=== PATIENT | male | born 1965 | race Caucasian/White ===

== ENCOUNTER 2022-07-16 01:16 | Emergency (ER) | payer BC, SELFPAY ==
[2022-07-16] VITALS (7 sets, daily range): BP systolic 106–113; BP diastolic 75–81; PULSE 58–82; RESP 12–18; TEMP 36.6; O2SAT 100
--- NOTE | ~2022-07-16 | XR_ITS ---
EXAMINATION: XR chest 2V DATE: 07/16/2022 03:47 INDICATION: Left chest pain. TECHNIQUE: Frontal and lateral views of the chest were obtained. COMPARISON: None. FINDINGS: The chest demonstrates clear lungs without pneumonia, pleural effusion, or pneumothorax. Th e heart size is normal. IMPRESSION: 1. No acute cardiopulmonary disease. Reviewed, dictated and finalized at location A. TLINE JOINER
--- NOTE | 2022-07-16 03:24 | ECG_ITS ---
Measurements Intervals [place] Rate: 65 P: 8 DC: 147 QRS: 35 QRSD: 100 T: 34 QT: 397 QTc: 413 Interpretive Statements SINUS RHYTHM NO PREVIOUS ECG AVAILABLE FOR COMPARISON Electronically Signed On 07-16-2022 14:52:56 PHYTOPATHOLOGY TEACHER by Alton Griffith M.D.
[2022-07-16 03:51] LABS: Basophils Percent Auto 0.5 % (0.2-1.2); Eosinophils Percent Auto 0.5 % (0-4.4); Hematocrit 43.8 % (42.0-52.0); Hemoglobin 15.6 g/dL (14.0-18.0); Immature Granulocyte Absolute 0.01 K/mm3 (0.00-0.031); Immature Granulocyte Percent A 0.2 % (0-0.5); Lymphocytes Absolute Auto 1.42 K/mm3 (0.9-3.2); Lymphocytes Percent Auto 25.4 % (18.3-44.2); Mean Corpuscular HGB Conc 35.6 g/dl (32-36); Mean Corpuscular Hemoglobin 33.1 pg (26-34); Mean Corpuscular Volume 92.8 fl (80-100); Mean Platelet Volume 9.7 fl (7.4-10.4); Monocytes Absolute Auto 0.5 K/mm3 (0.1-0.6); Monocytes Percent Auto 8.8 % (2.6-8.5); Neutrophils Absolute Auto 3.6 K/mm3 (1.3-6.7); Neutrophils Percent Auto 64.6 % (45.5-73.1); Platelet Count Result 142 k/mm3 (150-375); Red Blood Count 4.72 M/mm3 (4.6-6.20); Red Cell Distribution Width 11.9 % (11.5-14.5); White Blood Count 5.6 K/mm3 (4.5-10.0)
[2022-07-16 04:02] LABS: INR 1.1; Prothrombin Time 13.4 Seconds (11.1-14.7)
[2022-07-16 04:03] LABS: Partial Thromboplastin Time 32.6 SECONDS (22.3-36.8)
[2022-07-16 04:04] LABS: Alanine Aminotransferase 24 U/L (6-50); Albumin Level 4.8 g/dL (3.5-5.1); Alkaline Phosphatase 56 U/L (38-126); Anion Gap 6 mmol/L (8-16); Aspartate Amino Transferase 25 U/L (17-59); Bilirubin,Total 2.5 mg/dL (0.2-1.3); Blood Urea Nitrogen 17 mg/dL (9-20); Calcium 8.9 mg/dL (8.4-10.2); Carbon Dioxide 28 mmol/L (22-30); Chloride 105 mmol/L (98-107); Estimated CRCL calculation 85 ml/min; Estimated Glomerular Filt Rate > 60; Glucose 103 mg/dL (65-110); Lipase 79 U/L (23-300); Potassium 3.8 mmol/L (3.4-5.0); Sodium 139 mmol/L (137-145)
[2022-07-16 04:16] LABS: Troponin I < 0.012 ng/mL (0.000-0.034)
[2022-07-16 04:27] LABS: Influenza A QL RT-PCR Negative (Negative); Influenza B QL RT-PCR Negative (Negative); SARS-CoV-2 RNA PCR Negative
--- NOTE | 2022-07-16 05:04 | ED.GENADULT ---
HPI - General Adult General Chief complaint: Chest Pain Stated complaint: Chest Pain Time Seen by Provider: 07/16/22 03:54 History of Present Illness HPI narrative: is a 57-year-old male presenting ED with chief complaint of chest pain. Patient says he has been feeling subxiphoid pressure for the last week. It radiates up to his left chest and is a burning pain. 5/10 in intensity. It comes and goes. He felt this once 15 years ago and went to the emergency room and was told they can find anything. There are no alleviating factors. The pain is worse with laying flat. He has been told that he has reflux before. Patient had noticed that there has been some dyspnea on exertion. Additionally he has trouble sleeping and he has experienced tingling in his fingertips. Additionally he is describing strange wave sensations that come from his xiphoid up over his head and makes him feel faint. These usually last 2-3 seconds. He has not actually fainted. Patient denies nausea, vomiting, diaphoresis, history of heart disease, Fever, chills, productive cough, abdominal pain urinary symptoms or diarrhea/constipation. Related Data Allergies Allergy/AdvReac Type Severity Reaction Status Date / Time No Known Allergies Allergy Verified 07/16/22 03:43 [facility] Past Medical History Medical History Healthy male adult Surgical History Surgical History H/O hernia repair Social History Social History Social History: Drinks alcohol occasionally, denies tobacco or drug use Exam Narrative: APPEARANCE: No apparent distress. Head: atraumatic. EYES: EOMI, NOSE: Atraumatic NECK: Trachea midline RESPIRATORY: No increased rate of breathing, clear to auscultation bilaterally CARDIOVASCULAR: RRR, no peripheral edema ABDOMINAL: Non-distended, soft nontender no guarding or rebound MUSCULOSKELETAl: No obvious deformities NEURO: Alert. Moving 4/4 extremities SKIN:: Warm, dry. Normal color PSYCHIATRIC: Normal affect Course Vital Signs Vital signs: Vital Signs Temperature 97.9 F 07/16/22 01:23 Pulse Rate 82 07/16/22 01:23 Respiratory Rate 18 07/16/22 01:23 Pulse Oximetry 100 07/16/22 01:23 Oxygen Delivery Room Air 07/16/22 01:23 Temperature 97.9 F 07/16/22 01:23 Pulse Rate 72 07/16/22 07:50 Respiratory Rate 15 07/16/22 07:50 Blood Pressure 113/79 07/16/22 07:50 Pulse Oximetry 100 07/16/22 07:50 Oxygen Delivery Room Air 07/16/22 06:45 Medical Decision Making MDM Narrative Medical decision making narrative: -Presentation: 57-year-old male presenting with chest discomfort. -DDX includes but is not limited to: ACS, heartburn, gastritis, anxiety, pulmonary embolism -Co-morbidities complicating care: history of heartburn -Social determinants of health: patient lives at home with his -External Chart Review: none -Hx from independent Sources: -Discussion of Management/Consultants: none -Independent interpretation of studies: CBC was within normal limits. CMP was within normal limits. Initial troponin was negative. Viral swabs are negative Chest x-ray showed no acute cardiopulmonary process. Independent EKG interpretation: Rhythm [sinus], Rate [65], [place] -[normal], [place] -[normal], QRS [narrow], QTC [normal], T waves -[negative for concerning inversions], ST Segments - [Negative for concerning elevations] Final interpretations: [Normal Sinus Rhythm] Troponin negative x2. D-dimer was negative. Dx tests considered but not ordered: none -Procedures: -Interventions: Maalox, 1 L normal saline 325 mg aspirin -Shared decision making / Disposition: Patient's EKGs and labs are reviewed without significant high risk changes. Cardiac risk factors reviewed. Heart score is <4 and it iss reasonable
[2022-07-16] MEDS: SODIUM CHLORIDE 0.9% IV 1,000 ML 999 ML IV CONT (05:36)
[2022-07-16] MEDS: ASPIRIN 81 MG CHEWABLE TABLET 324 MG PO (05:37)
[2022-07-16] MEDS: FAMOTIDINE 20 MG/2 ML VIAL IV PUSH (05:38)
[2022-07-16] MEDS: MAG HYDROX/AL HYDROX/SIMETH 30 ML UDC PO (05:38)
[2022-07-16 06:34] LABS: D Dimer 0.34 ug/mL (<0.48)
[2022-07-16 07:15] LABS: NT Pro B Type Natriuretic Pept 30 pg/mL (19.9-100); Troponin I < 0.012 ng/mL (0.000-0.034)
--- NOTE | 2022-07-16 07:31 | PC.NURSE ---
Report given to KAUSHIK Kwon.
== END 2022-07-16 07:50 | disposition home or self-care (01) ==
PROVIDERS: Emergency Provider Emergency Medicine; PCP Family Medicine
DX: R07.9 Chest pain, unspecified (principal); K21.9 Gastro-esophageal reflux disease without esophagitis; Z20.822 Contact with and (suspected) exposure to COVID-19
CPT/HCPCS: 36415; 71046; 80053; 83690; 83880; 84484; 85025; 85380; 85610; 85730; 87636; 93005; 96361; 96374; 99284; A9270; J7030

== ENCOUNTER → 2022-08-06 15:25 | Outpatient (CLI) | payer BC, SELFPAY ==
--- NOTE | ~2022-08-06 | CT_ITS ---
EXAMINATION: CT abdomen pelvis w con DATE: 08/06/2022 15:59 INDICATION: Generalized abdominal pain. Upper abdominal pain for 3 weeks. History of hernia repair. TECHNIQUE: Computed tomography (CT) of the abdomen and pelvis was performed with 100 CC Omnipaque 350 intravenous contrast. Automated exposure control and iterative reconstruction technique were employe d. Exam dose: 426.59 mGy-cm total exam DLP. COMPARISON: 02/07/2019 [facility] 09/05/2007 abdominal ultrasound 08/26/2010 CT renal stone FINDINGS: Minimal dependent atelectasis of the lower lobes. No consolidation at the lung bases. Normal heart size. No pericardial or pleural effusion. Multiple scattered hepatic cysts of variable size, the largest approximately 1.8 cm. No suspicious hepatic or splenic, pancreatic, adrenal or renal space occupying mass lesion. A small cyst of each kidney is noted. Pinpoint nonobstructing lower pole left renal calculus. No ureteral calculus or hydroureteronephrosis of either kidney. There is prostate enlargement and calcification. The urinary bladder is unremarkable. Normal caliber of the abdominal aorta. No intraperitoneal or retroperitoneal or pelvic mass lesion or adenopathy or ascites. Normal appendix. No bowel obstruction, bowel wall thickening, pneumatosis or intraperitoneal free air . Small fat-containing umbilical hernia. Small fat-containing left inguinal hernia. No suspicious osteolytic or osteoblastic lesions. IMPRESSION: Multiple hepatic cysts, small renal cysts Small nonobstructing lower pole left renal calculus Normal appendix Reviewed, dictated and finalized at Location A. Reviewed, dictated and finalized at location L. AL ENGINEER
== END ==
PROVIDERS: PCP Family Medicine; Visit Provider Family Medicine
DX: R10.9 Unspecified abdominal pain (principal); K76.89 Other specified diseases of liver; N28.1 Cyst of kidney, acquired; N20.0 Calculus of kidney
CPT/HCPCS: 74177; Q9967

== ENCOUNTER 2023-05-07 00:46 | Day surgery (SDC) | payer BC, SELFPAY ==
[2023-04-21 12:58] VITALS: BMI 23.1
--- NOTE | 2023-05-05 09:47 | SUR.PREOP ---
Patient called regarding upcoming procedure. Reviewed preop instructions, appointment times, and procedure prep.
--- NOTE | 2023-05-06 17:42 | PM.HPGS ---
History of Present Illness History of Present Illness Consent: Risks, benefits, and alternatives have been discussed and questions answered. Patient agrees to proceed with procedure. Chief complaint: HX colon polyps Narrative: Richard Machado is a 58 year old male Referred for colon cancer screening. Nine years ago he had a colonoscopy with removal of 2 tubular adenomas. Review of Systems Review of Systems: All systems reviewed & are unremarkable except as noted in HPI and below PMFSH Past Medical History Medical History Fatigue Healthy male adult Impacted cerumen of left ear Surgical History Surgical History H/O hernia repair Family History Family History Mother Patient's mother is in good health Father Patient's father is in good health Sibling Patient's sister is in good health Social History Social History Social History: Caffeine-tea Smoking status: Never smoker Alcohol intake: current Drinks per week: 1 Alcohol use details: rarely Substance use: never Substance use type: does not use Lack of Transportation: No Lack of Food: Never True Current Housing: I Have Housing Concerned About Future Housing: No Difficulty Paying Gas/Electric Bills: No Difficulty Paying for Meds: No Currently Unemployed: No Education: Associate Degree Difficulty w/ Childcare or Family Care: No Living arrangements: with family Spiritual care concerns: No Meds Home Medications and Allergies Home Medications Medication Instructions Recorded Confirmed Type No Home Medications 01/12/23 05/07/23 History Allergies Allergy/AdvReac Type Severity Reaction Status Date / Time No Known Allergies Allergy Verified 05/07/23 07:46 Exam Const: General: alert Orientation/consciousness: patient oriented x3 Resp: Auscultation: clear to auscultation bilaterally Cardio: Rhythm: regular rhythm GI: GI Palp: Yes Soft to palpation and No Tenderness to palpation present (GI) Neuro: General: patient oriented x3 Assessment and Plan Assessment and plan (1) Colon cancer screening: Code(s): Z12.11 - Encounter for screening for malignant neoplasm of colon Status: Acute Assessment and Plan: Colonoscopy with possible biopsy or polypectomy or cautery or injection of substances.
[2023-05-07] VITALS (7 sets, daily range): BP systolic 106–128; BP diastolic 68–81; PULSE 62–75; RESP 16–25; TEMP 35.9; O2SAT 100
[2023-05-07] MEDS: LACTATED RINGERS 1,000 ML 150 ML IV CONT (07:57)
--- NOTE | 2023-05-07 08:34 | P.PNAN_ITS ---
Anes - Initial Pre Proc Eval Procedure: Operation Date: 05/07/23 09:00 Proposed Procedures p Colonoscopy - Faisal Henderson MD Date/Time: 05/07/23 08:34 Surgeon: Faisal Henderson MD Pre Op Diagnosis: HX colon polyps Patient Data Age: 58 Gender: M Height: 1.8 m Weight: 73.5 kg Last Vital Signs Temp 96.7 F L 05/07/23 07:48 Pulse 64 05/07/23 07:48 Resp 16 05/07/23 07:48 BP 123/77 05/07/23 07:48 Pulse Ox 100 05/07/23 07:48 O2 Del Method Room Air 05/07/23 07:48 Allergies Allergy/AdvReac Type Severity Reaction Status Date / Time No Known Allergies Allergy Verified 05/07/23 07:46 Home Medications Medication Instructions Recorded Confirmed Type No Home Medications 01/12/23 05/07/23 History Patient hx anesthesia problems: other (prolonged awakening) Family hx anesthesia problems: none Results Review: All pre-operative results and documents have been reviewed as part of the pre- operative evaluation. FORMERLY [facility], [facility] Past Medical History Medical History Fatigue Healthy male adult Impacted cerumen of left ear Surgical History Surgical History H/O hernia repair Family History Family History Mother Patient's mother is in good health Father Patient's father is in good health Sibling Patient's sister is in good health Social History Social History Social History: Caffeine-tea Smoking status: Never smoker Alcohol intake: current Drinks per week: 1 Alcohol use details: rarely Substance use: never Substance use type: does not use Lack of Transportation: No Lack of Food: Never True Current Housing: I Have Housing Concerned About Future Housing: No Difficulty Paying Gas/Electric Bills: No Difficulty Paying for Meds: No Currently Unemployed: No Education: Associate Degree Difficulty w/ Childcare or Family Care: No Living arrangements: with family Spiritual care concerns: No Anes - Eval Final PreProcedure Day of Procedure 05/07/23 08:34 Patient weight: normal Heart: regular rate and rhythm Lungs: clear to auscultation Airway: Mallampati scale class II Neurological: alert and oriented Last oral intake: >/= 8 hours ASA classification: II Emergent: no Anesthetic plan: proceed Anesthesia type and monitoring: general GIVS and standard monitoring Results Review: All pre-operative results and documents have been reviewed as part of the pre- operative evaluation. Informed Consent: The patient's anesthetic plan and its attendant risks and benefits were discussed with the patient/family/POA. Questions were solicited and answers provided to the satisfaction of the patient/family/POA.
--- NOTE | 2023-05-07 09:18 | SUR.PHASEII ---
pt very difficult to arouse in recovery. states he is usually like this after any sedation, dr cerda made aware. will keep pt extra time in recovery. is at bs.
== END 2023-05-07 09:47 | disposition home or self-care (01) ==
PROVIDERS: PCP Family Medicine; Visit Provider Internal Medicine Gastroenterology
PROC: 0DJD8ZZ Inspection of Lower Intestinal Tract, Via Natural or Artificial Opening Endoscopic (ICD-10-PCS; CPT 45378; principal; 2023-05-07 09:00)
DX: Z12.11 Encounter for screening for malignant neoplasm of colon (principal); K57.30 Diverticulosis of large intestine without perforation or abscess without bleeding; K64.8 Other hemorrhoids; Z86.010 Personal history of colon polyps
CPT/HCPCS: 45378; J2704; J7120

== ENCOUNTER 2023-10-31 15:48 | Emergency (ER) | payer BC, SELFPAY ==
[2023-10-31 16:08] VITALS: BP 129/74; PULSE 83; RESP 16; TEMP 37.2; O2SAT 100
--- NOTE | 2023-10-31 17:15 | ED.GENADULT ---
HPI - General Adult General Chief complaint: Skin/Abscess/Foreign Body Stated complaint: REACTION TO SPIDER BITE Time Seen by Provider: 10/31/23 17:16 Source: patient Mode of arrival: ambulatory Limitations: no limitations History of Present Illness HPI narrative: 58-year-old male patient presents to [facility] with complaints of multiple spider bites that happened yesterday. Patient states he was in that she had yesterday cleaning it out when he knocked something over and thinks that he knocked over a spiders Nest. Patient states he has a bite on each of the bottom of the feet as well as to the left upper flank area. Patient denies fevers, body aches chills. Denies chest pain, shortness of breath or trouble breathing. Denies coughing or trouble swallowing. Patient states he has tried some hydrocortisone cream to help with the itching but denies any oral antihistamines or Benadryl. Related Data Allergies Allergy/AdvReac Type Severity Reaction Status Date / Time No Known Allergies Allergy Verified 05/07/23 07:46 Review of Systems Review of Systems: CONSTITUTIONAL: Denies fever, chills, or sweats. EYES: Denies visual changes, redness, or discharge. ENT: Denies rhinorrhea, congestion, sore throat, or otalgia. CARDIOVASCULAR: Denies chest pain, palpitations, or edema. RESPIRATORY: Denies cough or dyspnea. GASTROINTESTINAL: Denies abdominal pain, nausea, vomiting, or diarrhea. GENITOURINARY: Denies dysuria or hematuria. SKIN: Denies rash or itching. Positive spider bite to bilateral feet and left lateral torso MUSCULOSKELETAL: Denies back pain, joint pain, or myalgia. NEUROLOGIC: Denies headache, numbness, or weakness. PSYCHIATRIC: Denies anxiety or depression. [facility] Past Medical History Medical History Fatigue Healthy male adult Impacted cerumen of left ear Surgical History Surgical History H/O hernia repair Family History Family History Mother Patient's mother is in good health Father Patient's father is in good health Sibling Patient's sister is in good health Social History Social History Social History: Caffeine-tea Smoking status: Never smoker Alcohol intake: current Drinks per week: 1 Alcohol use details: rarely Substance use: never Substance use type: does not use Lack of Transportation: No Lack of Food: Never True Current Housing: I Have Housing Concerned About Future Housing: No Difficulty Paying Gas/Electric Bills: No Difficulty Paying for Meds: No Currently Unemployed: No Education: Associate Degree Difficulty w/ Childcare or Family Care: No Living arrangements: with family Spiritual care concerns: No Comments At the time of my signature I agree with nursing past medical history, surgical, social, and family history. There is no relevant family history pertinent to the presenting complaint. Exam Narrative: GENERAL: Well-appearing, well-nourished, and in no acute distress. HEAD: Normocephalic, atraumatic. EYES: PERRLA and EOMI. ENT: Nares clear, no rhinorrhea or epistaxis. Mucous membranes moist. NECK: Supple. No lymphadenopathy CHEST: Clear to auscultation. No respiratory distress. HEART: Regular rate and rhythm. No murmur heard. Normal peripheral pulses. ABDOMEN: Soft, nontender, nondistended, normal active bowel sounds. EXTREMITIES: Normal range of motion. No edema. SKIN: Warm, dry, no rash. patient does have an obvious punctate anya noted to the left lateral torso with surrounding erythema and slight warmth. Erythema measuring approximately 7 cm x 3 cm. There is some redness and warmth noted to bilateral soles of the feet but no obvious punctate anya is noted. There is no open wounds or drainage to any of the wounds. no streaki
== END 2023-10-31 17:41 | disposition home or self-care (01) ==
PROVIDERS: Emergency Provider Nurse Practitioner Family; PCP Family Medicine
DX: S20.362A Insect bite (nonvenomous) of left front wall of thorax, initial encounter (principal); W57.XXXA Bitten or stung by nonvenomous insect and other nonvenomous arthropods, initial encounter; K21.9 Gastro-esophageal reflux disease without esophagitis
CPT/HCPCS: 99213; G0463

== ENCOUNTER 2025-02-22 03:20 | Emergency (ER) | payer BC, SELFPAY ==
[2025-02-22] VITALS (7 sets, daily range): BP systolic 105–148; BP diastolic 67–96; PULSE 58–72; RESP 12–20; TEMP 36.5; O2SAT 98–100
--- NOTE | ~2025-02-22 | XR_ITS ---
Examination: XR chest 2V Clinical History: chest pain Comparison: 07/16/2022 Technique: PA and Lateral Findings: Cardiomediastinal silhouette normal size and configuration. Lungs clear. No acute bony abnormality. IMPRESSION: 1. No acute cardiopulmonary findings. Reviewed, dictated and finalized at location R.
--- OUTSIDE RECORDS SUMMARY | 2025-02-22 03:21 | XMS_ITS | Encounter Summary ---
Author Organization [facility] Health Address [address] [place] [address] Care Team Providers Care Physician Chief Of Pathology Name Role Phone Unavailable Primary Care Provider Unavailabl e Encounter Details Date Type Department Care Team (Late st Contact Info) Description 03/01/2018 Lab Requisition [facility] [address] [facility] [place] [address] Noelle Coronado MD [address] [facility] [address] [place] [address] Social History Tobacco Use Types Packs/Day Years Used Date Smoking Tobacco: Never Cigarettes Alcohol Use Standard Drinks/Week Comments Yes 0 (1 standard drink = 0.6 oz pur e alcohol) socially Sex and Gender Information Value Date Recorded Sex Assigned at Not on file 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 Gender Identity Not on file Sexual Orientation Not on file documented as of this encounter Plan of Treatment Not on file documented as of this encounter Procedures Procedure Name Priority Date/Time Associated Diagnosis Comments DERMATOPATH TECHNICAL REPORT Routine 02/25/2018 12:00 AM CDT documented in this encounter Results * DERMATOPATH TECHNICAL REPORT (02/25/2018 12:00 AM CDT) Case Report Dermatopathology Report Case: [id number] Authorizing Provider: Noelle Coronado MD Collected: 02/25/2018 12:00 AM Pathologist: Rosy Vazquez MD Received: 03/01/2018 06:12 AM Specimen: Skin, right post ear 12:52 PM CDT DERMATOPATHOLOGY LABORATORY Addendum 1 At the request of the diagnosing physician, the technical component for Case-EP4 was performed by [facility] Dermatopathology Laboratory. 12:52 PM [facility] DERMATOPATHOLOGY LABORATORY Addendum electronically signed by Rosy Vazquez MD on 03/09/2018 at 1252 CDT Clinical History R/O BCC vs scar vs [place] atopic papule. Check margins. 12:52 PM T DERMATOPATHOLOGY LABORATORY Gross Description Specimen A: Received is one formalin filled container labeled with the patient's name and designated right post ear. The specimen consists of a shave measuring [id number]. The margin is inked green. Jar 0. [facility] Dermatopathology Laboratory performed the technical component only. 12:52 PM CDT DERMATOPATHOLOGY LABORATORY Embedded Images 12:52 PM T DERMATOPATHOLOGY LABORATORY DISCLAIMER An external and internal positive and negative controls are appropriate for the histochemical, immunohistochemical and immunofluorescence stain(s) in this case (if any), except where stated explicitly. The performance characteristics of the stain(s) cited in this report were developed and its performance characteristic determined by the Dermatopathology Laboratory at [facility]. These tests need not be, and therefore are not, approved by the [place] Food and Drug Administration. The tests are used for clinical purposes. 12:52 PM [facility] DERMATOPATHOLOGY LABORATORY at 1307 CDT Pathology/Cytolog y TISSUE SPECIMEN FROM SKIN / Unknown 02/25/2018 03/01/2018 6:12 AM CDT us Noelle Coronado MD LAB - PATHOLOGY/CYTOLOGY ORD ERABLES Edited Result - Final DERMATOPATHOLOGY LABORATORY [facility] - Department of Dermatology [address] [facility], [address]th [place] [address], [place] [phone] documented in this encounter Visit Diagnoses Not on filedocumented in this encounter
--- NOTE | 2025-02-22 03:22 | ECG_ITS ---
Test Date: 2025-02-22 03:29:36 Measurements Intervals [place] Rate: 77 P: 66 MA: 159 QRS: 59 QRSD: 99 T: 52 QT: 389 QTc: 440 Interpretive Statements SINUS RHYTHM No previous ECG available for comparison Electronically Signed On 02-22-2025 06:35:59 CDT by Ruben Castellanos M.D.
[2025-02-22 03:54] LABS: Hematocrit 42.8 % (42.0-52.0); Hemoglobin 14.9 g/dL (14.0-18.0); Immature Granulocyte Percent A 0.2 % (0-0.5); Immature Platelet Fraction Pct 1.9 % (0.9-11.2); Lymphocytes Absolute Auto 2.22 K/mm3 (0.9-3.2); Mean Corpuscular HGB Conc 34.8 g/dl (32-36); Mean Corpuscular Hemoglobin 32.6 pg (26-34); Mean Corpuscular Volume 93.7 fl (80-100); Nucleated Red Blood Cells Absolute Auto 0.000 K/mm3 (0.0-0.012); Nucleated Red Blood Cells Perc 0.0 % (0.0-0.2); Platelet Count Result 120 k/mm3 (150-375); Red Blood Count 4.57 M/mm3 (4.6-6.20); White Blood Count 5.1 K/mm3 (4.5-10.0)
[2025-02-22 04:04] LABS: INR 1.1; Prothrombin Time 13.9 Seconds (11.1-14.7)
[2025-02-22 04:05] LABS: Partial Thromboplastin Time 31.4 Seconds (22.3-36.8)
[2025-02-22 04:10] LABS: Alanine Aminotransferase 23 U/L (6-50); Albumin Level 4.1 g/dL (3.5-5.1); Alkaline Phosphatase 52 U/L (38-126); Anion Gap 7 mmol/L (4-12); Aspartate Amino Transferase 26 U/L (17-59); Bilirubin,Total 2.7 mg/dL (0.2-1.3); Blood Urea Nitrogen 16 mg/dL (9-20); Calcium 8.9 mg/dL (8.4-10.2); Carbon Dioxide 26 mmol/L (22-30); Chloride 102 mmol/L (98-107); Estimated CRCL calculation 73 ml/min; Estimated Glomerular Filt Rate > 60; Glucose 101 mg/dL (65-110); Lipase 77 U/L (23-300); Potassium 3.6 mmol/L (3.4-5.0); Sodium 135 mmol/L (137-145); Total Protein 6.9 g/dL (6.3-8.2)
[2025-02-22 04:23] LABS: Troponin I < 0.012 ng/mL (0.000-0.034)
--- OUTSIDE RECORDS SUMMARY | 2025-02-22 04:42 | XMS_ITS | Encounter Summary ---
Author Organization [facility] Health Address [address] [facility] [place] [address] Care Team Providers Care Administration Intern Name Role Phone Unavailable Primary Care Provider Unavailabl e Encounter Details Date Type Department Care Team (Late st Contact Info) Description 03/01/2018 Lab Requisition [facility] [address] [facility] [place] [address] Noelle Coronado MD [address] 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 Gender Identity Not on file Sexual Orientation Not on file documented as of this encounter Plan of Treatment Not on file documented as of this encounter Procedures Procedure Name Priority Date/Time Associated Diagnosis Comments DERMATOPATH TECHNICAL REPORT Routine 02/25/2018 12:00 AM CDT documented in this encounter Results * DERMATOPATH TECHNICAL REPORT (02/25/2018 12:00 AM CDT) Case Report Dermatopathology Report Case: [id number] Authorizing Provider: Noelle Coronado MD Collected: 02/25/2018 12:00 AM Pathologist: Rosy Vazquez MD Received: 03/01/2018 06:12 AM Specimen: Skin, right post ear 12:52 PM CDT DERMATOPATHOLOGY LABORATORY Addendum 1 At the request of the diagnosing physician, the technical component for Case-EP4 was performed by [facility] Dermatopathology Laboratory. 12:52 PM [facility] DERMATOPATHOLOGY LABORATORY Addendum electronically signed by Rosy Vazquez MD on 03/09/2018 at 1252 CDT Clinical History R/O BCC vs scar vs [place] atopic papule. Check margins. 12:52 PM T DERMATOPATHOLOGY LABORATORY Gross Description Specimen A: Received is one formalin filled container labeled with the patient's name and designated right post ear. The specimen consists of a shave measuring [id number]. The margin is inked green. Jar 0. [facility] Dermatopathology Laboratory performed the technical component only. [...] characteristic determined by the Dermatopathology Laboratory at [facility]. These tests need not be, and therefore are not, approved by the [place] Food and Drug Administration. The tests are used for clinical purposes. 12:52 PM [facility] DERMATOPATHOLOGY LABORATORY at 1307 CDT Pathology/Cytolog y TISSUE SPECIMEN FROM SKIN / Unknown 02/25/2018 03/01/2018 6:12 AM CDT us Noelle Coronado MD LAB - PATHOLOGY/CYTOLOGY ORD ERABLES Edited Result - Final DERMATOPATHOLOGY LABORATORY [facility] - Department of Dermatology [address] [facility], [address]th [place] [address], [facility] [phone] documented in this encounter Visit Diagnoses Not on filedocumented in this encounter
--- NOTE | 2025-02-22 04:43 | ED.CHESTPAIN ---
HPI - Chest Pain General Chief Complaint: Chest Pain Stated Complaint: chest pain Time Seen by Provider: 02/22/25 04:15 History of Present Illness HPI narrative: 60-year-old male presenting to the emergency department with left-sided chest discomfort. He states it woke him up out of sleep and he knows that his heart rate was irregular briefly. He describes a sharp stabbing sensation and then changed to a dull ache. States he has had history of something like this happened to him previously and was attributed to GERD or other GI issues. Denies any cardiac history, heart attacks, stents. No history of coronary disease and he has had negative stress test before but this was over 10 years ago. Denies any other past medical history. Did not take anything prior to arrival. Denies any shortness a breath, dyspnea, nausea, vomiting, neck pain, back pain, abdominal pain, fever, chills. His a history of chronically elevated bilirubin that he states is from his GI issues but has seen multiple specialists without any acute findings previously or history of gallstones. Related Data Home Medications ?Medication ?Instructions ?Recorded ?Confirmed ?Last Taken ?Type No Home Medications 02/07/24 12/28/24 Unknown History Allergies Allergy/AdvReac Type Severity Reaction Status Date / Time No Known Allergies Allergy Verified 12/28/24 15:36 Review of Systems Review of Systems: As reviewed above in HPI All systems reviewed & are unremarkable except as noted in HPI and below PMFSH Past Medical History Medical History Impacted cerumen of left ear Fatigue Healthy male adult Surgical History Surgical History H/O hernia repair Family History Family History Mother Patient's mother is in good health Father Patient's father is in good health Sibling Patient's sister is in good health Social History Social History Social History: Caffeine-tea Smoking status: Never smoker Alcohol intake: current Alcohol use details: rarely Substance use: never Substance use type: does not use Do You Feel Safe in your Home?: Yes Lack of Transportation: No Lack of Food: Never True Current Housing: I Have Housing Concerned About Future Housing: No Difficulty Paying Gas/Electric Bills: No Difficulty Paying for Meds: No Currently Unemployed: No Education: Associate Degree Difficulty w/ Childcare or Family Care: No Living arrangements: with family Spiritual care concerns: No Exam Narrative: GENERAL: [Well-appearing, well-nourished, and in no acute distress.] HEAD: [Normocephalic, atraumatic.] EYES: [PERRLA and EOMI.] ENT: Nares clear, no rhinorrhea or epistaxis. Mucous membranes moist. NECK: Supple. CHEST: [Clear to auscultation. No respiratory distress.] HEART: [Regular rate and rhythm]. No murmur heard. [Normal peripheral pulses.] ABDOMEN: [Soft, nondistended], [nontender], [No rigidity or guarding] EXTREMITIES: Normal range of motion. [No edema.] SKIN: Warm, dry, no rash. NEURO: [No focal deficits]. Alert and oriented [x3.] PSYCH: [Normal mood and affect.] Course Vital Signs Vital signs: Vital Signs Temperature 36.5 C 02/22/25 03:26 Pulse Rate 72 02/22/25 03:26 Respiratory Rate 15 02/22/25 03:26 Blood Pressure 148/96 H 02/22/25 03:26 Pulse Oximetry 100 02/22/25 03:26 Oxygen Delivery Room Air 02/22/25 03:26 Temperature 36.5 C 02/22/25 03:26 Pulse Rate 59 L 02/22/25 05:46 Respiratory Rate 12 02/22/25 05:46 Blood Pressure 115/75 02/22/25 05:46 Pulse Oximetry 99 02/22/25 05:46 Oxygen Delivery Room Air 02/22/25 03:34 MDM - Chest Pain MDM Narrative Medical decision making narrative: 60-year-old male presenting to the emergency department with left-sided chest discomfort. He states it woke him up out of sleep and he knows that his heart rate was irregular briefly. He describes a sharp stabbing sensation and then changed to a dull ache. States he has had history of something like this happened to him previously and was attributed to GERD or other GI issues. Denies any cardiac history, heart attacks, stents. No history of coronary disease and he has had negative stress test before but this was over 10 years ago. Denies any other past medical history. Did not take anything prior to arrival. Denies any shortness a breath, dyspnea, nausea, vomiting, neck pain, back pain, abdominal pain, fever, chills. His a history of chronically elevated bilirubin that he states is from his GI issues but has seen multiple specialists without any acute findings previously or history of gallstones. Patient has a reassuring physical examination with strong symmetric pulses, clear breath sounds. No tachycardia, tachypnea, fever or hypoxemia. Unremarkable blood pressure. Symptoms have slowly improved and now he is only having 1 at 10 dull ache in this left-sided chest laterally. Not reproducible palpation. EKG obtained is nonischemic. Placed on monitoring analyst and pulse oximetry. Has no risk factors for ACS at this time. No signs of DVT or any risk factors and he meets low Wells criteria and can be safely ruled out with a dimer. Possibility of gastritis or GERD given his history of recurrent GI symptoms. Possibility of pneumonia pneumothorax less likely. Broad workup including chest x-ray, EKG, delta troponins, CBC, CMP and lipase obtained. Patient offered analgesia but politely declined this time. Patient's workup was largely unrevealing. No leukocytosis or anemia. Chronically low platelet count but not severe range. Negative D-dimer. Normal PT and PTT. Normal electrolytes. Normal kidney function. Normal glucose. Chronically elevated bilirubin as patient is aware of this. No acute kidney or liver function abnormalities. Negative troponin. Negative delta troponin. Negative lipase. Chest x-ray shows no acute cardiopulmonary abnormality. Repeat EKG shows no ectopy, ST segment elevations, depressions or acute inversions. Normal QTC interval. Patient re-evaluated and stable. Low heart score and can safely be discharged with Cardiology referral in follow-up. Patient and family made aware and stable for discharge at this time. Medical Records Data Attestation: I reviewed the patient's medical records. Lab Data Attestation: I reviewed the patient's lab results. 02/22/25 03:48 02/22/25 03:48 Labs: Lab Results 02/22/25 02/22/25 Range/Units 03:48 06:16 WBC 5.1 (4.5-10.0) K/mm3 RBC 4.57 L (4.6-6.20) M/mm3 Hgb 14.9 (14.0-18.0) g/dL Hct 42.8 (42.0-52.0) % MCV 93.7 (80-100) fl MCH 32.6 (26-34) pg MCHC 34.8 (32-36) g/dl RDW 11.7 (11.5-14.5) % Plt Count 120 L (150-375) k/mm3 MPV 9.4 (7.4-10.4) fl Immature Gran % (Auto) 0.2 (0-0.5) % Neut % (Auto) 45.7 (45.5-73.1) % Lymph % (Auto) 43.3 (18.3-44.2) % Republic % (Auto) 8.4 (2.6-8.5) % Eos % (Auto) 1.6 (0-4.4) % Baso % (Auto) 0.8 (0.2-1.2) % Lymph # (Auto) 2.22 (0.9-3.2) K/mm3 Republic # (Auto) 0.4 (0.1-0.6) K/mm3 Eos # (Auto) 0.1 (0-0.3) K/mm3 Baso # (Auto) 0.0 (0.0-0.1) K/mm3 Abs Immat Gran (auto) 0.01 (0.00-0.031) K/mm3 Absolute Neuts (auto) 2.4 (1.3-6.7) K/mm3 Absolute Nucleated RBC 0.000 (0.0-0.012) K/mm3 Nucleated RBC % 0.0 (0.0-0.2) % % Immature Plt Fraction 1.9 (0.9-11.2) % PT 13.9 (11.1-14.7) Seconds INR 1.1 APTT 31.4 (22.3-36.8) Seconds D-Dimer < 0.27 (<0.48) ug/mL Sodium 135 L (137-145) mmol/L Potassium 3.6 (3.4-5.0) mmol/L Chloride 102 (98-107) mmol/L Carbon Dioxide 26 (22-30) mmol/L Anion Gap 7 (4-12) mmol/L BUN 16 (9-20) mg/dL Creatinine 0.94 (0.7-1.3) mg/dL Estim Creat Clear Calc 73 ml/min Estimated GFR > 60 (59 - ) Glucose 101 (65-110) mg/dL Calcium 8.9 (8.4-10.2) mg/dL Total Bilirubin 2.7 H (0.2-1.3) mg/dL AST 26 (17-59) U/L ALT 23 (6-50) U/L Alkaline Phosphatase 52 (38-126) U/L Troponin I < 0.012 < 0.012 (0.000-0.034) ng/mL Total Protein 6.9 (6.3-8.2) g/dL Albumin 4.1 (3.5-5.1) g/dL Lipase 77 (23-300) U/L Imaging Data Attestation: I personally reviewed and interpreted this imaging study as follows: My impression: Impressions Chest X-Ray 02/22/25 05:59 IMPRESSION: 1. No acute cardiopulmonary findings. Discharge Plan Discharge Clinical Impression: Chest pain Patient Disposition: Home Condition: Stable Instructions: Antibiotic Form, Chest Pain (ED) Additional Instructions: Your cardiac enzymes were negative on both blood draws. Negative blood clot level. No signs of any acute liver or kidney abnormalities. He of chronically elevated bilirubin which you are already aware of but likely unrelated today. Chest x-ray and EKGs are normal. No signs of any cardiac or vascular/pulmonary issues at this junction and the symptoms could very well be GI in nature but we will refer you to a pulverizing and sifting operator to evaluate you on an outpatient basis. If you have any recurrence or severe symptoms or any emergent concerns please return to the ER otherwise follow-up with regular care providers and referred pulverizing and sifting operator. Patient Language: Yemeni Prescriptions: No Action No Home Medications Follow-up/Referrals: Tye Cardenas DO [Physician, Cardiology] - 3 Days Referral Note: Chest pain and palpitations Idris Victor MD [Primary Care Provider, Family Practice] Time of Disposition: 06:49
--- NOTE | 2025-02-22 06:13 | ECG_ITS ---
Test Date: 2025-02-22 06:41:21 Measurements Intervals [place] Rate: 56 P: 58 WI: 160 QRS: 50 QRSD: 97 T: 43 QT: 409 QTc: 395 Interpretive Statements SINUS BRADYCARDIA OTHERWISE NORMAL ECHOCARDIOGRAM Compared to ECG 02/22/2025 03:29:36 Sinus rhythm no longer present Electronically Signed On 02-22-2025 12:43:52 CDT by Michael Gaines M.D.
[2025-02-22 06:44] LABS: Troponin I < 0.012 ng/mL (0.000-0.034)
== END 2025-02-22 07:09 | disposition home or self-care (01) ==
PROVIDERS: Emergency Provider Student in an Organized Health Care Education/Training Program; PCP Family Medicine
DX: R07.9 Chest pain, unspecified (principal)
CPT/HCPCS: 36415; 71046; 80053; 83690; 84484; 85025; 85055; 85380; 85610; 85730; 93005; 99284